=== PATIENT | female | born 1975 | race Two or more races ===

== ENCOUNTER 2018-08-08 13:08 | Emergency (ER) | payer MEDICAID ==
[~2018-08-08] VITALS: Ht 157.5 cm; Wt 65.0 kg
[2018-08-08] MEDS ORDERED: SODIUM CHLORIDE 0.9% 1,000 ML IV ONE (15:09)
[2018-08-08] MEDS ORDERED: KETOROLAC 30MG/ML VIAL IV STA (15:09)
[2018-08-08] MEDS ORDERED: ONDANSETRON HCL 4MG/2ML INJ IV STA (15:09)
[2018-08-08] MEDS ORDERED: LACTATED RINGERS 1,000 ML IV STA (15:11)
[2018-08-08 15:33] LABS: BASOPHILS % 0.1 % (0.0-2.0); EOSINOPHILS % 0.3 % (0.0-5.0); HEMATOCRIT. 41.8 % (36.0-48.0); HEMOGLOBIN. 14.6 g/dL (12.0-16.0); LYMPHOCYTES % 28.1 % (20.0-50.0); MEAN CORPUSCULAR VOLUME 88.3 fL (81.0-99.0); MEAN PLATELET VOLUME 8.4 fl (7.4-10.4); NEUTROPHILS % 65.5 % (40.0-76.0); PLATELET 303 x1000/uL (130-400); RED BLOOD CELL COUNT 4.73 mill/uL (4.2-5.4); RED CELL DISTRIBUTION WIDTH 13.9 % (11.6-14.6)
[2018-08-08 15:36] LABS: CHLORIDE 109 mEq/L (98-107)
[2018-08-08 15:40] LABS: PROTHROMBIN TIME 10.2 sec (9.6-11.0)
[2018-08-08 16:27] LABS: CLARITY URINE CLOUDY (CLEAR); COLOR URINE YELLOW (YELLOW); KETONES URINE TRACE (NEGATIVE); LEUKOCYTE ESTERASE URINE TRACE (NEGATIVE); NITRITE URINE NEGATIVE (NEGATIVE); OCCULT BLOOD URINE NEGATIVE (NEGATIVE); PH URINE 7.5 (4.5-8.0); PROTEIN URINE NEGATIVE (NEGATIVE); SPECIFIC GRAVITY URINE 1.022 (1.005-1.030); UROBILINOGEN URINE 0.2 E.U./dL (0.2-1.0)
[2018-08-08 18:23] VITALS: BP 108/70
== END 2018-08-08 18:26 | disposition home or self-care (01) ==
LOC: ER 13:08
DX: R11.2 Nausea with vomiting, unspecified (principal); E86.0 Dehydration
CPT/HCPCS: 36415; 80053; 81003; 83690; 84484; 85025; 85610; 96361; 96374; 96375; 99283; J1885; J2405; J7030; J7120

== ENCOUNTER 2019-05-19 13:40 | Emergency (ER) | payer SELFPAY ==
[~2019-05-19] VITALS: Ht 152.4 cm; Wt 74.0 kg
[2019-05-19 16:26] VITALS: BP 134/84
== END 2019-05-20 01:00 | disposition left against medical advice (07) ==
LOC: ER 13:40
DX: Z53.21 Procedure and treatment not carried out due to patient leaving prior to being seen by health care provider (principal)
CPT/HCPCS: 93005

== ENCOUNTER 2020-01-07 12:25 | Emergency (ER) | payer MEDICAID ==
[~2020-01-07] VITALS: Ht 152.4 cm; Wt 63.5 kg
[2020-01-07 12:31] VITALS: BP 117/72
[2020-01-07] MEDS ORDERED: KETOROLAC 30MG/ML VIAL IM ONE (14:45)
== END 2020-01-07 15:42 | disposition home or self-care (01) ==
LOC: ER 12:25
DX: M79.651 Pain in right thigh (principal)
CPT/HCPCS: 81025; 96372; 99283; J1885

== ENCOUNTER 2021-06-18 12:21 | Emergency (ER) | payer MEDICAID ==
[~2021-06-18] VITALS: Ht 165.1 cm; Wt 79.0 kg
[2021-06-18 12:29] VITALS: BP 111/74
[2021-06-18] MEDS ORDERED: METOCLOPRAMIDE HCL 10MG/2ML VIAL IV STA (12:34)
[2021-06-18] MEDS ORDERED: MAGNESIUM/ALUMINUM HYDROXIDE/SIMETHICONE 30ML UDC PO STA (12:34)
[2021-06-18] MEDS ORDERED: FAMOTIDINE 20MG/2ML VIAL IV STA (12:34)
[2021-06-18] MEDS ORDERED: SODIUM CHLORIDE 0.9% 1,000 ML IV ONE (12:45)
[2021-06-18 13:08] LABS: BASOPHILS % 0.2 % (0.0-2.0); EOSINOPHILS % 0.3 % (0.0-5.0); HEMATOCRIT. 41.9 % (36.0-48.0); HEMOGLOBIN. 14.5 g/dL (12.0-16.0); LYMPHOCYTES % 7.3 % (20.0-50.0); MEAN CORPUSCULAR HEMOGLOBIN 28.9 pg (28.0-32.0); MEAN CORPUSCULAR VOLUME 83.6 fL (81.0-99.0); MEAN PLATELET VOLUME 7.8 fl (7.4-10.4); MONOCYTES % 3.3 % (2.0-8.0); NEUTROPHILS % 88.9 % (40.0-76.0); PLATELET 314 x1000/uL (130-400); RED BLOOD CELL COUNT 5.01 mill/uL (4.2-5.4); RED CELL DISTRIBUTION WIDTH 14.3 % (11.6-14.6)
[2021-06-18 13:22] LABS: CHLORIDE 108 mEq/L (98-107)
[2021-06-18 13:41] LABS: HCG SCREEN NEGATIVE
[2021-06-18] MEDS ORDERED: MORPHINE SULFATE 4 MG/ML CPJ (NOT FOR IM USE) IV ONE (13:45)
[2021-06-18 15:57] LABS: CLARITY URINE CLEAR (CLEAR); COLOR URINE YELLOW (YELLOW); PH URINE 5.5 (4.5-8.0); PROTEIN URINE NEGATIVE (NEGATIVE); SPECIFIC GRAVITY URINE 1.029 (1.005-1.030)
[2021-06-18 15:58] LABS: KETONES URINE 2+ (NEGATIVE); LEUKOCYTE ESTERASE URINE NEGATIVE (NEGATIVE); NITRITE URINE NEGATIVE (NEGATIVE); OCCULT BLOOD URINE NEGATIVE (NEGATIVE)
[2021-06-18] MEDS ORDERED: ONDA4TAB11 PO (16:45)
[2021-06-18] MEDS ORDERED: OMEP20CA14 MT (16:45)
== END 2021-06-18 17:18 | disposition home or self-care (01) ==
LOC: ER 12:21
DX: E86.0 Dehydration (principal); R00.0 Tachycardia, unspecified
CPT/HCPCS: 36415; 76705; 80053; 81003; 83690; 84703; 85025; 93005; 96361; 96374; 96375; 99285; J2270; J2765; J3490; J7030